=== PATIENT | female | born 1970 | race Two or more races ===

== ENCOUNTER 2018-04-08 08:12 | Emergency (ER) | payer OTHER ==
[~2018-04-08] VITALS: Ht 154.9 cm; Wt 60.3 kg
[2018-04-08] MEDS ORDERED: SYNTHROID175 MCG (08:37)
== END 2018-04-08 12:23 | disposition home or self-care (01) ==
LOC: ER 08:12
DX: R51 Headache (principal); R42 Dizziness and giddiness; R55 Syncope and collapse

== ENCOUNTER 2018-08-24 13:02 | Emergency (ER) | payer OTHER ==
[~2018-08-24] VITALS: Ht 154.9 cm; Wt 61.2 kg
[~2018-08-24 13:02] MED LIST: SYNTHROID175 MCG
[2018-08-24] MEDS ORDERED: SYNTHROID88 MCG (13:36)
== END 2018-08-24 17:37 | disposition home or self-care (01) ==
LOC: ER 13:02
DX: R30.0 Dysuria (principal); R10.2 Pelvic and perineal pain